=== PATIENT | male | born 1960 | race Hispanic/Latino ===

== ENCOUNTER → 2018-10-17 | Day surgery (SDC) | payer SELFPAY ==
[~2018-10-17] MED LIST: LIDOCAINE 1% MPF 5 ML VIAL ONE; PROPOFOL 200 MG/20 ML VIAL IV ONE; Ringers Lactate 1,000 ML IV ONE
[2018-10-17 10:25] VITALS: TEMP 97.6
[2018-10-17 10:27] VITALS: BP 119/82; O2SAT 99
--- NOTE | 2018-10-17 19:59 | OP ---
Surgeon: Memo Mckeon MD Procedure Performed: Colonoscopy. Indication For Procedure: Screening, average risk. Plan For Anesthesia: Monitored anesthesia care. Complexity: Average. Technique: After obtaining informed consent from the patient and explaining risks and complications, which include, but are not limited to bleeding, infection, perforation, and anesthesia complication, the patient was placed in the left lateral position and sedation was given. From then on, a digital rectal exam was performed and scope was inserted into the rectum. The scope was carefully guided up till the cecum. The cecum was identified by the ileocecal valve and appendiceal orifice. Quality o f prep according to Marietta prep score was 1 + 2 + 2 which is equal to 5/9. Scope withdrawal time was 11 minutes. After the completion of procedure, scope and equipment were withdrawn and the procedure terminated in a safe manner. Findings: Digital rectal exam was normal. A few, rare diverticula seen in the sigmoid. In the desc ending colon, a 5-mm sessile polyp was seen. This was completely excised with hot biopsy polypectomy . Retroflexion revealed grade 1 internal hemorrhoids. Complications: None. Tolerance To Anesthesia: Excellent. Postoperative Diagnoses: Colon polyp, rare diverticulosis, and internal hemorrhoids. Plan: 1.Await pathology results. 2.Follow up in the GI clinic in 2 weeks. 3.Repeat colonoscopy in 3 years. 4.High-fiber diet. US/MODL Voice ID: [id number] Report ID: [id number]
== END | disposition home or self-care (01) ==
LOC: OR 07:04
PROVIDERS: ATTEND Internal Medicine Gastroenterology
PROC: 0DBM8ZX Excision of Descending Colon, Via Natural or Artificial Opening Endoscopic, Diagnostic (ICD-10-PCS; principal; 2018-10-17 08:00)
DX: Z12.11 Encounter for screening for malignant neoplasm of colon (principal); D12.4 Benign neoplasm of descending colon; K57.30 Diverticulosis of large intestine without perforation or abscess without bleeding; K64.8 Other hemorrhoids
CPT/HCPCS: 88305; J2704

== ENCOUNTER 2018-10-28 06:56 | Day surgery (SDC) | payer SELFPAY ==
--- OUTSIDE RECORDS SUMMARY | 2018-10-28 06:59 | XMS REPORT ---
:1960 [facility] [address] [place] [address] Dr. Bolden [address] [place] [id number] Care Team Providers Name Role Phone Unavailable Unavailable Unavailable Problems This patient has no known problems. Allergies, Adverse Reactions, Alerts This patient has no known allergies or adverse reactions. Medications This patient has no known medications.
[2018-10-28] MEDS ORDERED: Ringers Lactate 1,000 ML IV ONE (07:45)
[2018-10-28] MEDS ORDERED: PROPOFOL 200 MG/20 ML VIAL IV ONE (08:36)
[2018-10-28] MEDS ORDERED: LIDOCAINE 1% MPF 5 ML VIAL ONE (08:37)
[2018-10-28 09:07] VITALS: TEMP 96.4
[2018-10-28 09:10] VITALS: BP 113/70; O2SAT 100
--- NOTE | 2018-10-28 20:52 | OP ---
Surgeon: Memo Mckeon MD Procedure To Be Performed: Esophagogastroduodenoscopy. Indication For Procedure: Long-standing GERD, chronic cough. Plan For Anesthesia: Monitored anesthesia care. Complexity: Average. Technique: After obtaining informed consent from the patient explaining risks and complications, whi ch include, but are not limited to bleeding, infection, perforation, and anesthesia complications, th e patient was placed in the left lateral position and sedation was given. From then on, the scope wa s advanced to the mouth and carefully guided up till the second portion of the duodenum. After the c ompletion of examination, scope and equipment were withdrawn and procedure terminated in a safe jaclyn r. Findings: Esophagus: No gross lesion seen in the upper and mid esophagus. In the distal esophagus, there was evidence of LA grade C esophagitis with 1 area, which appeared to have an ulceration as we ll as nodularity. Multiple biopsies taken from the ulcer and from the nodular mucosa. Stomach: Mild patchy erythema seen in the body. In the antrum, few erosions were visualized. Antra l and body biopsies taken. Duodenum: The bulb and second portion appeared normal. Complications: None. Tolerance To Anesthesia: Excellent. Postoperative Diagnoses: Esophagitis with ulceration and erosive gastritis. Plan: 1.Await pathology results. 2.Avoid NSAIDs. 3.Anti-reflux measures. 4.Start pantoprazole 40 mg once a day. 5.Repeat EGD in 8 weeks for followup. US/MODL Voice ID: [id number] Report ID: [id number]
== END 2018-10-28 09:31 | disposition home or self-care (01) ==
LOC: OR 06:56
PROVIDERS: ATTEND Internal Medicine Gastroenterology
PROC: 0DB68ZZ Excision of Stomach, Via Natural or Artificial Opening Endoscopic (ICD-10-PCS; principal; 2018-10-28 08:30)
DX: K29.50 Unspecified chronic gastritis without bleeding (principal); K22.10 Ulcer of esophagus without bleeding; K21.9 Gastro-esophageal reflux disease without esophagitis; R05 Cough; B96.81 Helicobacter pylori [H. pylori] as the cause of diseases classified elsewhere
CPT/HCPCS: 88305; 88312; J2704

== ENCOUNTER 2021-02-23 11:58 | Emergency (ER) | payer SELFPAY ==
--- OUTSIDE RECORDS SUMMARY | 2021-02-23 12:01 | XMS REPORT | Continuity of Care Document ---
:1960 Author Organization [facility] t Address [address] [place] [address] Support Name Relationship Address Phone Erwin uMniz Son [address] [place] [address] Care Team Providers Name Role Phone Unavailable Unavailable Unavailable Problems Condition Condition Condition Status Onset Resolution Last Treating Co mments Source Name Details Category Date Date Treatment Clinician Date Dizziness Dizziness Disease Active [facility] 01-29 Health 00:00: 00 Allergies, Adverse Reactions, Alerts This patient has no known allergies or adverse reactions. Social History Social Habit Start Date Stop Date Quantity Comments Source Sex Assigned At [facility] alth Alcohol intake 2017-01-29 2017-01-29 Current [facility] 00:00:00 00:00:00 non-drinker of alcohol (finding) Smoking Status Start Date Stop Date Source Former smoker 2017-01-29 00:00:00 2017-01-29 00:00:00 [facility] Medications This patient has no known medications. Procedures This patient has no known procedures. Plan of Care Planned Activity Planned Date Details Comments Source Future Scheduled Test 2021-06-24 00:00:00 IMM Influenza [facility] Seasonal Oct to November (>/= 19 yrs) [code = IMM Influenza Seasonal Oct to November (>/= 19 yrs)] Future Scheduled Test 2012 00:00:00 Screening for [facility] malignant neoplasm of colon (procedure) [code = 239293554] Future Scheduled Test 1978 00:00:00 COVID-19 Vaccine (1) [facility] [code = COVID-19 Vaccine (1)] Results This patient has no known results.
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
[2021-02-23 14:27] VITALS: BP 156/79; O2SAT 97
== END 2021-02-23 14:16 | disposition home or self-care (01) ==
LOC: ER 11:58
DX: T26.11XA Burn of cornea and conjunctival sac, right eye, initial encounter (principal)
CPT/HCPCS: 99284